=== PATIENT | male | born 1975 | race Caucasian/White ===

== ENCOUNTER 2016-08-13 09:34 | Emergency (ER) | payer BC ==
[2016-08-13 09:43] VITALS: TEMP 98.2; BMI 34.0
[2016-08-13] MEDS ORDERED: OXYCODONE HCL 5 MG TABLET PO ONE (09:59)
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
[2016-08-13 10:39] VITALS: BP 146/83; PULSE 74
== END 2016-08-13 10:58 | disposition home or self-care (01) ==
LOC: ED 09:34
DX: M77.9 Enthesopathy, unspecified (principal)
CPT/HCPCS: 73564; 99283; J3490